=== PATIENT | female | born 1975 | race Caucasian/White ===

== ENCOUNTER → 2017-05-06 | Outpatient (CLI) | payer OTHER ==
[~2017-05-06] MED LIST: ATOR10TA PO; CETI10TA24 PO; FLUO20CA19 PO; GUAR1TAB6 PO; METF500T4 PO; METO25TA91 PO
== END | disposition home or self-care (01) ==
LOC: CFH 08:40
PROVIDERS: ATTEND Obstetrics & Gynecology Female Pelvic Medicine and Reconstructive Surgery
DX: Z12.31 Encounter for screening mammogram for malignant neoplasm of breast (principal)
CPT/HCPCS: G0202

== ENCOUNTER → 2018-05-08 | Outpatient (CLI) | payer OTHER ==
[~2018-05-08] MED LIST changes: -METF500T4 PO; +METF500T5 PO
== END | disposition home or self-care (01) ==
LOC: CFH 07:14
PROVIDERS: ATTEND Obstetrics & Gynecology Female Pelvic Medicine and Reconstructive Surgery
DX: Z12.31 Encounter for screening mammogram for malignant neoplasm of breast (principal)
CPT/HCPCS: 77063; 77067

== ENCOUNTER 2018-10-11 09:01 | Observation (INO) | payer OTHER ==
[~2018-10-11] VITALS: Ht 165.1 cm; Wt 72.2 kg
[~2018-10-11 09:01] MED LIST changes: +METF500T17 PO; -METF500T5 PO
[2018-10-11] MEDS ORDERED: ASPIRIN 81 MG TABLET CHEW ONE (09:44)
[2018-10-11] MEDS ORDERED: NITROGLYCERIN SINGLE TAB 0.4 MG SL ONE (09:44)
--- NOTE | 2018-10-11 09:51 | NUR ---
Pt presents for CP starting at 0620 this AM, pressure, L chest. No nausea or vomiting. No other sx. SR on monitor. VSS.
[2018-10-11] MEDS ORDERED: NITROGLYCERIN SINGLE TAB 0.4 MG SL PRN (10:00)
[2018-10-11] MEDS ORDERED: ASPIRIN 81 MG TABLET CHEW PO ONE (10:00)
[2018-10-11] MEDS ORDERED: SODIUM CHLORIDE FLUSH 10ML SYR IVF ONE (10:00)
[2018-10-11 10:14] LABS: BASOPHILS # (AUTO) 0.05 x10^3/uL (0-0.1); BASOPHILS % (AUTO) 1 % (0-1); EOSINOPHILS # (AUTO) 0.17 x10^3/uL (0-0.4); EOSINOPHILS % (AUTO) 2 % (1-7); LYMPHOCYTES # (AUTO) 2.42 x10^3/uL (1-3.4); LYMPHOCYTES % (AUTO) 26 % (22-44); MD NO; MEAN CORPUSCULAR HEMOGLOBIN 32.5 pg (27.0-34.8); MEAN CORPUSCULAR HGB CONC 34.5 g/dL (32.4-35.8); MEAN CORPUSCULAR VOLUME 94.3 fL (80-100); MEAN PLATELET VOLUME 8.3 fL (7.4-10.4); MONOCYTES # (AUTO) 0.63 x10^3/uL (0.2-0.8); MONOCYTES % (AUTO) 7 % (2-9); NEUTROPHILS # (AUTO) 6.14 x10^3/uL (1.8-6.8); NEUTROPHILS % (AUTO) 65 % (42-75); PLATELET COUNT 354 x10^3/uL (130-400); RED BLOOD COUNT 4.38 x10^6/uL (3.82-5.3); RED CELL DISTRIBUTION WIDTH 13.6 % (9.6-15.2)
[2018-10-11 10:21] LABS: ALBUMIN 3.6 g/dL (3.4-5.0); ANION GAP 6 mmol/L (5-15); CALCIUM 9.1 mg/dL (8.5-10.1); CHLORIDE 106 mmol/L (98-107)
[2018-10-11 10:33] LABS: ALANINE AMINOTRANSFERASE 48 U/L (12-78); ALKALINE PHOSPHATASE 116 U/L (45-117); BILIRUBIN,TOTAL 0.4 mg/dL (0.2-1.0); CREATININE 0.85 mg/dL (0.55-1.02); TOTAL PROTEIN 7.2 g/dL (6.4-8.2); TROPONIN I < 0.015 ng/mL (0.000-0.045)
[2018-10-11] MEDS ORDERED: LOSA25TA25 PO (11:02)
[2018-10-11] MEDS ORDERED: MONT10TA6 PO (11:02)
[2018-10-11] MEDS ORDERED: SODIUM CHLORIDE FLUSH 10ML SYR IVF PRN (11:30)
[2018-10-11] MEDS ORDERED: ENALAPRILAT 1.25 MG/ML, 2ML IVPush PRN (12:00)
[2018-10-11] MEDS ORDERED: ONDANSETRON ODT 4 MG PO PRN (12:00)
[2018-10-11] MEDS ORDERED: ONDANSETRON 2MG/ML, 2ML IVPush PRN (12:00)
[2018-10-11 13:04] LABS: TROPONIN I < 0.015 ng/mL (0.000-0.045)
[2018-10-11 13:12] LABS: HEMOGLOBIN A1C 5.2 % (4.2-6.3)
[2018-10-11 14:00] VITALS: BP 128/80
[2018-10-11 17:26] LABS: TROPONIN I < 0.015 ng/mL (0.000-0.045)
[2018-10-11 18:57] VITALS: BP 125/84
[2018-10-12 01:27] VITALS: BP 120/81
[2018-10-12 05:40] LABS: BASOPHILS # (AUTO) 0.17 x10^3/uL (0-0.1); BASOPHILS % (AUTO) 2 % (0-1); EOSINOPHILS # (AUTO) 0.23 x10^3/uL (0-0.4); EOSINOPHILS % (AUTO) 2 % (1-7); LYMPHOCYTES # (AUTO) 3.29 x10^3/uL (1-3.4); LYMPHOCYTES % (AUTO) 29 % (22-44); MD NO; MEAN CORPUSCULAR HEMOGLOBIN 32.1 pg (27.0-34.8); MEAN CORPUSCULAR VOLUME 94.6 fL (80-100); MEAN PLATELET VOLUME 8.6 fL (7.4-10.4); MONOCYTES # (AUTO) 0.94 x10^3/uL (0.2-0.8); MONOCYTES % (AUTO) 8 % (2-9); NEUTROPHILS % (AUTO) 59 % (42-75); PLATELET COUNT 300 x10^3/uL (130-400); RED BLOOD COUNT 4.11 x10^6/uL (3.82-5.3); RED CELL DISTRIBUTION WIDTH 13.3 % (9.6-15.2)
[2018-10-12 05:57] LABS: CHLORIDE 107 mmol/L (98-107)
[2018-10-12 06:30] LABS: ANION GAP 9 mmol/L (5-15); CALCIUM 8.4 mg/dL (8.5-10.1); CHOL/HDL RATIO 2.9; CHOLESTEROL, TOTAL 161 mg/dL (140-239); CREATININE 0.87 mg/dL (0.55-1.02); HDL CHOL % 34 % (28-40); HDL CHOLESTEROL (DIRECT) 55 mg/dL (40-60); LDL CHOLESTEROL,CALCULATED 82 mg/dL (54-169); LDL/HDL RATIO 1.5 (0.5-3.0); TRIGLYCERIDES 120 mg/dL (50-200); VLDL CHOLESTEROL 24 mg/dL (0-25)
[2018-10-12] MEDS ORDERED: ENOXAPARIN 40 MG/0.4 ML SQ SCH (08:00)
[2018-10-12 08:17] VITALS: BP 119/81
[2018-10-12] MEDS ORDERED: LOSARTAN 25MG TABLET PO SCH (09:00)
[2018-10-12] MEDS ORDERED: FLUOXETINE HCL 20 MG CAPSULE PO SCH (09:00)
[2018-10-12] MEDS ORDERED: MONTELUKAST 10 MG TABLET PO SCH (09:00)
[2018-10-12] MEDS ORDERED: metFORMIN 500 MG TABLET PO SCH (09:00)
[2018-10-12] MEDS ORDERED: ATORVASTATIN 10 MG TABLET PO SCH (09:00)
[2018-10-12] MEDS ORDERED: CALC-666 PO (14:11)
== END 2018-10-12 16:05 | disposition home or self-care (01) ==
LOC: ED 10:01 → INTOOBSV 11:08 → EDIP 11:08 → 5SO 12:12
PROVIDERS: ADMIT Hospitalist; ATTEND Hospitalist
DX: R07.9 Chest pain, unspecified (principal); E78.00 Pure hypercholesterolemia, unspecified; F41.9 Anxiety disorder, unspecified; E78.5 Hyperlipidemia, unspecified; E28.2 Polycystic ovarian syndrome; I10 Essential (primary) hypertension; Z82.49 Family history of ischemic heart disease and other diseases of the circulatory system; Z83.3 Family history of diabetes mellitus; Z90.710 Acquired absence of both cervix and uterus
CPT/HCPCS: 36415; 71045; 78452; 80048; 80053; 80061; 83036; 83690; 83735; 84100; 84439; 84443; 84484; 85025; 93005; 93017; 96372; 99284; A9502; C9898; G0378; J1650

== ENCOUNTER → 2018-11-19 | Outpatient (CLI) | payer OTHER ==
[~2018-11-19] MED LIST changes: +CALC-666 PO; +LOSA25TA25 PO; +MONT10TA6 PO
== END | disposition home or self-care (01) ==
LOC: RAD 09:32
PROVIDERS: ATTEND Internal Medicine
DX: R13.13 Dysphagia, pharyngeal phase (principal)
CPT/HCPCS: 74220; 74230